=== PATIENT | male | born 1985 ===

== ENCOUNTER 2023-05-03 04:24 | Emergency (ER) | payer BC, SELFPAY ==
[2023-05-03] VITALS (9 sets, daily range): BP systolic 123–149; BP diastolic 77–97; BMI 29.5
[2023-05-03 05:02] LABS: % Basophils 0.4 % (0-2); % Immature Granulocytes 0.2 % (0-0.5); % Lymphocytes 43.7 % (20.5-51.1); % Monocytes 10.9 % (1.7-9.3); % Neutrophils 43.8 % (42.2-75.2); Absolute Eosinophils 0.1 10^3/uL (0-0.7); Absolute Lymphocytes 2.2 10^3/uL (1.2-3.4); Absolute Monocytes 0.6 10^3/uL (0.1-0.6); Absolute Neutrophils 2.2 10^3/uL (1.4-6.5); Hematocrit 40.9 % (39.0-52.0); Hemoglobin 14.9 g/dL (13.0-18.0); Mean Corp Hgb Conc. 36.4 g/dL (33.0-37.0); Mean Corpuscular Hgb 32.9 pg (27.0-31.0); Mean Corpuscular Volume 90.3 fL (80.0-94.0); Mean Platelet Volume 10.1 fL (7.4-10.4); Nucleated Red Blood Cells % 0 % (-); Platelet Count 223 10^3/uL (130-400); Red Blood Cell Count 4.53 10^6/uL (4.70-6.10); Red Cell Dist. Width 11.9 % (11.5-14.5)
[2023-05-03 05:04] LABS: Urine Albumin Negative (Neg - Trace); Urine Bilirubin Negative (Negative); Urine Character Clear (Clear); Urine Color Yellow; Urine Glucose Negative (Negative); Urine Ketone Negative (Negative); Urine Leukocyte Negative (Negative); Urine Nitrite Negative (Negative); Urine Occult Blood Trace (Negative); Urine Urobilinogen Negative (Neg - 1+)
[2023-05-03 05:26] LABS: ALT (SGPT) 32 U/L (0-50); AST (SGOT) 36 U/L (17-59); Albumin 4.7 g/dl (3.5-5.0); Alkaline Phosphatase 68 U/L (38-126); Blood Urea Nitrogen 18 mg/dl (9-20); Calcium 9.3 mg/dl (8.4-10.2); Carbon Dioxide 23 mmol/L (22-30); Chloride 105 mmol/L (98-107); Estimated Creatinine Clearance > 125 ml/min; Glucose 100 mg/dl (70-99); Lipase 54 U/L (23-300); Potassium 4.2 mmol/L (3.5-5.1); Sodium 138 mmol/L (135-145); Total Bilirubin 0.5 mg/dl (0.2-1.3); Total Protein 7.6 g/dl (6.3-8.2); eGFR > 60.00
--- NOTE | 2023-05-03 06:14 | ED.GENMED ---
History of Present Illness
General
Chief Complaint: Abdominal Pain
Source: patient
Exam Limitations: none
Time Seen by Provider: 05/03/23 06:04
Nursing documentation reviewed up to this point in time: agreed with
Travel History
Have you had any contact with someone who has COVID-19?: No
Do you have any symptoms of coronavirus? Fever > 100 degrees, chills, cough, shortness of breath, sore throat, loss of taste or smell, muscle aches, or headache?: No
History of Present Illness
History of Present Illness:
37-year-old male presents emerged from complaining of mid to left lower quadrant abdominal pain that woke him up from sleep. He has had this pain in the past and follows with gastroenterology. Gastroenterology ordered a CT abdomen pelvis earlier
in the week, but he has not yet been able to obtain it. No fevers, no diarrhea, no nausea or vomiting.
Past History
Past History
ED Past Medical History: None
ED Past Surgical History: Urological (Vasectomy)
Social History
Tobacco: Non-smoker
Alcohol: Occasional
Drug: None
Personal:
Living: with family
Employment: Employed
Review of Systems
Review of Systems
Allergies reviewed?: Yes
All Other Systems: Not applicable
Constitutional: Reports no symptoms
EENT: Reports no symptoms
Respiratory: Reports no symptoms
Cardiac: Reports no symptoms
ABD/GI: Reports abdominal pain; Denies vomiting or diarrhea
: Reports no symptoms
Musculoskeletal: Reports no symptoms
Skin: Reports no symptoms
Neurological: Reports no symptoms
Endocrine: Reports no symptoms
Hematologic/Lymphatic: Reports no symptoms
Psychiatric: Reports no symptoms
Phy Exam
Physical Exam
Physical Exam:
Physical Exam
General: no apparent distress, not acutely ill
Neck: supple. no meningeal signs. normal posterior pharynx
Heart: s1/s2 regular rate and rhythm, no murmur. equal radial
pulses.
HEENT: Pupils equal round reactive to light, EOMI
Lungs: no acute respiratory distress. clear bilaterally
Abdomen: normal bowel sounds. Mild left lower quadrant tenderness. no CVAT
Neuro: alert and oriented. no focal neurological deficits cranial nerves II through XII intact
Skin: no rash
Psychiatric: well kept. interactive and cooperative
Extremities: no edema. no calf tenderness. negative homans. good distal pulses
Course
Orders/Labs/Results
Orders:
Orders
05/03/23 04:39
IV Insert/Care/Rem.- Treatment PRN
05/03/23 04:40
Complete Blood Count/With Diff Urgent
Comprehensive Metabolic Panel Urgent
Lipase Urgent
Urinalysis Reflex To Culture Urgent
Date Specimen was Collected: 05/03/23
Time Specimen was Collected: 04:39
Urine Microscopic Reflex Cult Urgent
05/03/23 06:12
CT Abd/pel W Iv And Oral Contr Urgent
Comment:
Reason For Exam: LLQ abdominal pain since 9 am
Iohexol [Omnipaque] See Protocol PO NOW STA
Abnormal Lab Results
05/03/23
04:40
RBC 4.53 L 10^6/uL
(4.70-6.10)
MCH 32.9 H pg
(27.0-31.0)
Monocytes % 10.9 H %
(1.7-9.3)
Glucose 100 H mg/dl
(70-99)
Ur Occult Blood Reflex Trace A
(Negative)
05/03/23 04:40
05/03/23 04:40
Vital Signs
Initial and Last Documented VS:
Initial Vital Signs
Temp Pulse Resp BP Pulse Ox
97.3 F 64 18 124/88 100
05/03/23 04:26 02/11/24 04:26 05/03/23 04:26 05/03/23 04:26 05/03/23 04:26
Last Documented Vital Signs
Temp Pulse Resp BP Pulse Ox
97.3 F 64 18 138/90 100
05/03/23 04:26 05/03/23 04:26 05/03/23 04:26 05/03/23 10:00 05/03/23 04:26
MDM/Problems Addressed
Differential Diagnosis Includes:
Diverticulitis, ureteral colic
MDM/Problems Addressed:
37-year-old male with abdominal pain, no acute findings on labs or CT abdomen pelvis. Small hepatic cyst seen, no signs of UTI on urinalysis.
*Radiology
Radiology exam reviewed: radiology read reviewed (CT abdomen pelvis no acute findings)
*Pulse Oximetry
Patient hypoxic: no
*EKG
Interpreted by ED Provider?: NA
*Credit Specialist Interpretation
Rate: Credit Specialist- N/A
*Critical Care Note
Total Time (30-74mins, 75-104mins- exclusive of procedures): Not Applicable
Patient Management
Social determinants of health affecting care: Strong social support
Escalation/DeEscalation of care consider admission/obs:
Admit not indicated
ED Attending Note
-
Portions of this chart may have been created with voice recognition software.� Occasional wrong word or��sound alike� substitutions may have occurred due to the inherent limitations of voice recognition software.
Discharge Plan
Departure
Patient Disposition: Home (Routine Discharge)
Date of Disposition: 05/03/23
Time of Disposition: 10:21
Patient with high blood pressure during this ER visit?: Yes
Condition: Good
Discharge Problem:
Abdominal pain
Instructions: Abdominal Pain, BLOOD PRESSURE
Referrals:
Ishan Grey DC [Family Provider] - Call in 1-3 days for appt
Interventions
Interventions:
*Risk Screen - Suicide Last Done: 05/03/23 04:26
*General Assessment Last Done: 05/03/23 05:22
*Neglect/Abuse Screening Last Done: 05/03/23 04:26
ED- Fall Risk Assessment Last Done: 05/03/23 05:22
BH-Ntwkcf-Fywgfofdjh Assessment Last Done: 05/03/23 05:22
[2023-05-03 06:15] LABS: Urine Red Blood Cell None Seen /HPF (0-2); Urine White Cell None Seen /HPF (0-5)
[2023-05-03] MEDS: OMNIPAQUE 50 ML PO (06:18)
== END 2023-05-03 10:15 | disposition home or self-care (01) ==
LOC: EMR 04:24
PROVIDERS: Student in an Organized Health Care Education/Training Program; EMERGENCY PHYSICIAN Emergency Medicine
DX: R10.32 Left lower quadrant pain (principal)
CPT/HCPCS: 99285; 74177; 80053; 81003; 81015; 83690; 85025; Q9967